=== PATIENT | male | born 2000 | race Asian ===

== ENCOUNTER 2021-12-12 12:09 | Emergency (ER) | payer OTHER ==
[~2021-12-12] VITALS: Ht 180.3 cm; Wt 72.6 kg
== END 2021-12-12 18:02 | disposition home or self-care (01) ==
LOC: EMR PED 12:09
DX: H74.90 Unspecified disorder of middle ear and mastoid, unspecified ear (principal); Z20.822 Contact with and (suspected) exposure to COVID-19